=== PATIENT | male | born 1975 | race Caucasian/White ===

== ENCOUNTER 2025-08-14 21:00 | Emergency (ER) | payer MEDICAID, OTHER ==
[~2025-08-14] VITALS: Ht 172.7 cm; Wt 84.1 kg
[~2025-08-14 21:00] MED LIST: HYDR-4383 PO
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
[2025-08-14 21:45] VITALS: BP 132/78; PULSE 89; RESP 18; TEMP 98.6; O2SAT 99
== END 2025-08-14 21:54 | disposition home or self-care (01) ==
LOC: ER 21:01
DX: Z02.89 Encounter for other administrative examinations (principal); I10 Essential (primary) hypertension; V49.9XXA Car occupant (driver) (passenger) injured in unspecified traffic accident, initial encounter; Y93.89 Activity, other specified; Y92.89 Other specified places as the place of occurrence of the external cause; Y99.8 Other external cause status
CPT/HCPCS: 99283